=== PATIENT | male | born 1985 | race Hispanic/Latino ===

== ENCOUNTER 2020-05-10 09:45 | Emergency (ER) | payer SELFPAY ==
[~2020-05-10] VITALS: Ht 170.2 cm; Wt 95.3 kg
[2020-05-10] MEDS ORDERED: PHENYTOIN SODIUM INJ 50 MG/ML 2 ML VIAL IV STA (10:00)
[2020-05-10] MEDS ORDERED: SODIUM CHLORIDE 0.9% 250ML 250 ML ONE (10:30)
[2020-05-10] MEDS ORDERED: PHENYTOIN SODIUM INJ 50 MG/ML 2 ML VIAL ONE (10:30)
[2020-05-10] MEDS ORDERED: MECLIZINE HCL 12.5 MG TAB ONE (12:08)
[2020-05-10] MEDS ORDERED: MECLIZINE HCL 12.5 MG TAB PO ONE (12:30)
[2020-05-10 12:40] VITALS: BP 110/58
== END 2020-05-10 12:42 | disposition home or self-care (01) ==
LOC: FSED 10:10
DX: G40.909 Epilepsy, unspecified, not intractable, without status epilepticus (principal); R42 Dizziness and giddiness
CPT/HCPCS: 80053; 85025; 99284; J1165; J7050; J8597